=== PATIENT | male | born 1990 | race African-American/Black ===

== ENCOUNTER 2019-03-22 09:30 | Emergency (ER) | payer MEDICAID ==
[~2019-03-22] VITALS: Ht 180.3 cm; Wt 67.0 kg
[2019-03-22] MEDS ORDERED: ACETAMINOPHEN WITH CODEINE 300/30MG TABLET PO ONE (10:45)
[2019-03-22 11:25] VITALS: BP 129/76
== END 2019-03-22 11:35 | disposition home or self-care (01) ==
LOC: ER 09:46
DX: M25.572 Pain in left ankle and joints of left foot (principal); R03.0 Elevated blood-pressure reading, without diagnosis of hypertension; Z72.0 Tobacco use
CPT/HCPCS: 73620; 99283